=== PATIENT | male | born 1960 | race Caucasian/White ===

== ENCOUNTER 2017-04-03 14:40 | Inpatient (IN) | payer MEDICARE, MEDICAID ==
[~2017-04-03] VITALS: Ht 177.8 cm; Wt 78.6 kg
[2017-04-03] MEDS ORDERED: METO10ELUD PO (15:11)
[2017-04-03] MEDS ORDERED: REME15TA PO (15:11)
[2017-04-03] MEDS ORDERED: FENT1DIS14 TD (15:11)
[2017-04-03] MEDS ORDERED: PROT1TAB2 PO (15:11)
[2017-04-03] MEDS ORDERED: TRAZ50TA11 PO (15:11)
[2017-04-03] MEDS ORDERED: ASPI81TA85 PO (15:11)
[2017-04-03] MEDS ORDERED: CELE40TA PO (15:11)
[2017-04-03] MEDS ORDERED: MOM 30ML SUSPENSION UDC PO PRN (17:15)
[2017-04-03] MEDS ORDERED: MAALOX 30 ML SUSP *UDC PO PRN (17:15)
[2017-04-03] MEDS ORDERED: traZODone 50 MG TAB PO PRN (17:15)
[2017-04-03] MEDS ORDERED: ACETAMINOPHEN TAB 650MG DOSE (2X325MG) PO PRN (17:15)
[2017-04-03] MEDS ORDERED: METHY10TA PO (17:28)
[2017-04-03] MEDS ORDERED: DULO1CAP2 PO (17:28)
[2017-04-03] MEDS ORDERED: NIFE60TA6 PO (17:28)
[2017-04-03] MEDS ORDERED: DULO1CAP3 PO (17:28)
[2017-04-03 17:54] VITALS: BP 140/73
[2017-04-03] MEDS: MIRTAZAPINE 7.5MG PER 1/2 TABLET PO SCH (22:56)
[2017-04-04 06:54] VITALS: BP 150/80
[2017-04-04] MEDS ORDERED: DULoxetine 30 MG CAP (CYMBALTA) PO SCH ×2 (09:00)
[2017-04-04] MEDS ORDERED: METOCLOPRAMIDE HCL LIQUID 10 MG/10 ML UDC PO SCH (09:00)
[2017-04-04] MEDS ORDERED: CitaloPRAM (CeleXA) 20 MG TAB PO SCH (09:00)
[2017-04-04] MEDS: PANTOPRAZOLE 40MG TAB (PROTONIX) PO SCH (09:40)
[2017-04-04] MEDS: DULoxetine 30 MG CAP (CYMBALTA) PO SCH (09:40)
[2017-04-04] MEDS: ASPIRIN 81 MG ENTERIC TAB PO SCH (09:40)
[2017-04-04 18:00] VITALS: BP 135/78
--- NOTE | 2017-04-04 18:35 | MHHPEPDOC ---
[facility] History & Physical History and Physical DATE OF ADMISSION: Apr 03, 2017 at 17:07 LEGAL STATUS AT ADMISSION: 9.27 converted to voluntary status today CHIEF COMPLAINT: They thought I am suicidal. HISTORY OF THE PRESENT ILLNESS: Patient is a 56-year-old male, who , unemployed domiciled alone with past psychiatric history of depression and multiple inpatient hospital admissions, including last one 6 weeks ago in [place], history of 2 previous suicide attempts, one in 1980s with overdose and 6 weeks ago, again overdose while under the influence of alcohol, no legal problems, alcohol use. Past medical history of hypertension, [place], status post surgery for colon cancer in 2005 and knee surgery for cartilage problems, transferred from ER of [place] because patient reported suicidal ideations. On evaluation, patient reported that he is on fentanyl because of the back pain and one of his nieces was after him to get fentanyl patches from him. He initially ignored her, but she escalated and keep calling him, asking for fentanyl patches. Patient thinks that niece is addicted and did not want to give her any fentanyl, but she started following him, so he called 911. Patient reported that when police arrived, he told the story and police was not able to do much, so he asked how he can be removed from the situation, so he does not need to deal with the niece anymore. He reports that that's how the idea about suicide came into picture and he denies being suicidal. Patient does accept that around Easter time he broke up with his boyfriend of 5 years and felt very depressed and had to be in the inpatient unit for about 5 days for taking extra pills while being on the influence of alcohol. Patient thinks that he has improved since that and he does not feel depressed to the level of colon himself and denies any recent suicidal thoughts, intentions or plans. He reports that he talked about suicide just to get out of the situation this time. Patient's symptoms with minimizing and not fully opening up about his illness as well as the severity of the issues that he is going through. He reported that patient was talking about taking overdose in the [facility] , which led to transfer of the patient to this hospital ER He reports that he lives alone and gets Medicaid tow truck driver to take him to the appointments and also gets help from his sister at times to do grocery and other things, but reports that he does not have any other support to help him and thinks that all his relationships and family members are estranged. Patient reported that he has been following with his counselor and psychiatrist, Dr. Caroline Leonard lately and has been taking his medications Cymbalta 90 mg a day and Ritalin 10 mg twice a day regularly and also been following up regularly. Patient reports that he wants to live for himself and also wants to help new relationship since his boyfriend left him. He denies ever been having some manic symptoms. He also denies any psychotic symptoms including paranoid ideations and hallucinations. He denies any OCD or PTSD symptoms. He reports having some nervousness and anxiety but denies any panic attacks. PAST PSYCHIATRIC HISTORY: Prior Psychiatric Disorder: Depression. Patient reported that he has been admitted multiple times in the 1980s because of the depression and suicidal ideations and one attempt with overdose, but reports that recently he has been more stable except one admission 6 weeks ago for similar suicide attempt. Outpatient Treatment:. Patient reports being in therapy and medication management with Dr. Velazquez. Suicidal/Self injurious: 2 suicide attempts, as noted in HPI. Psychotropic Medication History:. Patient reports he has been on Cymbalta, Abilify. ALLERGIES: Please see below. FAMILY PSYCHIATRIC HISTORY: Patient denies any family history of psychiatric illnesses. SOCIAL HISTORY: 56-year-old male, domiciled unemployed, limited social support and estranged relationships with family and friends SUBSTANCE ABUSE HISTORY:. I'll call use. He reports drinking one to 2 beers daily. Denies any blackouts, withdrawal symptoms. PAST MEDICAL/SURGICAL HISTORY: 1., Hypertension, myocardial infarction, status post surgery for colon cancer, status post knee surgery for cartilage problems. MENTAL STATUS EXAMINATION: 56yo male sitting in the chair, looks appropriate for the stated age, fine to coarse tremor present B/L (familial?)fair hygiene and grooming, normal psychomotor activities, cooperative with fair eye contact, speech is normal in rate, rhythm, amount and prosody, mood is 'freaking out', affect constricted and mood congruent, thought process is logical and goal directed, denies current suicidal and homicidal ideations, denies hallucinations, no delusions elicited, aaox3, fair immediate, short term and intermediate memory, fair insight, judgement and impulse control DIAGNOSES: 1. Depressive disorder, unspecified, rule out major depression, recurrent, moderate to severe, without psychosis. 2.. Anxiety disorder, unspecified. ASSESSMENT: Biologically, having chronic medical illnesses can be perpetuating factor for patient but having no psychiatric illness in the family can be protective. Psychologically, having poor. Defense mechanisms and coping skills can be perpetuating factor. Socially, living alone and being estranged from other family members and be perpetuating factor PROBLEM LIST: 1. Depression, suicidal ideations. 2., Alcohol use. INITIAL TREATMENT PLAN: 1. Patient was admitted on a 9., changed to voluntary 2. Complete history was obtained. 3. With patients permission, family will be contacted and database will be expanded. 4. Patients medication regimen will be reviewed and changed accordingly. 5. Patient will be provided with protected environment. 6. Patient will be treated with individual, group, and milieu therapies. 7. Patient will receive supportive psych-education. 8. Discharge planning will commence immediately. 9. Outpatient follow-up treatment will be strongly recommended. 10. The initial treatment plan will focus initially on: * Depression. * Risk for suicide. * Substance abuse. ESTIMATED LENGTH OF STAY: 3-5 DAYS. TIME SPENT COUNSELING AND COORDINATING INITIAL CARE: 45 minutes. Medications Scheduled Aspirin (Aspir-81) 81 Mg Tab, 81 MG PO DAILY, (Reported) Duloxetine Hcl (Duloxetine HCl) 60 Mg Cap, 60 MG PO DAILY, (Reported) 90MG TOTAL DAILY Duloxetine Hcl (Duloxetine HCl) 30 Mg Cap, 30 MG PO DAILY, (Reported) 90MG TOTAL DAILY Fentanyl (Fentanyl) 25 Mcg/Hr Dis, 25 MCG TD Q3RD, (Reported) REMOVED ON TUESDAY AND HAS NOT PUT A NEW ONE ON Methylphenidate HCl (Methylphenidate HCl) 10 Mg Tab, 20 MG PO DAILY, (Reported) Mirtazapine (Remeron) 15 Mg Tab, 7.5 MG PO QHS, (Reported) Nifedipine (Nifedipine ER) 60 Mg Tab, 60 MG PO DAILY, (Reported) Scheduled PRN Trazodone HCl (Trazodone HCl) 50 Mg Tab, 50 MG PO DAILY PRN for SLEEP, (Reported ) Allergies Coded Allergies: Bupropion (Verified Allergy, Unknown, 04/03/17) Ibuprofen (Verified Allergy, Unknown, 04/03/17) MIS HUI MD Apr 04, 2017 18:35
[2017-04-04] MEDS: MIRTAZAPINE 7.5MG PER 1/2 TABLET PO SCH (21:48)
[2017-04-05] MEDS ORDERED: cloNIDine 0.1 MG TAB PO ONE (06:00)
[2017-04-05 06:15] VITALS: BP 200/100
[2017-04-05] MEDS: PANTOPRAZOLE 40MG TAB (PROTONIX) PO SCH (08:52)
[2017-04-05] MEDS: ASPIRIN 81 MG ENTERIC TAB PO SCH (08:53)
[2017-04-05] MEDS: DULoxetine 30 MG CAP (CYMBALTA) PO SCH (08:53)
[2017-04-05 08:57] VITALS: BP 170/90
[2017-04-05] MEDS: NIFEdipine 60 MG XL TAB PO SCH (12:03)
[2017-04-05] MEDS: METOPROLOL TARTRATE 100 MG TAB PO SCH ×2 (12:04→21:55)
--- NOTE | 2017-04-05 15:39 | MHIPNPDOC ---
[facility] Progress Note Progress Note DATE OF SERVICE: 04/05/17 HISTORY: ID: Patient is a 56-year-old male, who , unemployed domiciled alone with past psychiatric history of depression and multiple inpatient hospital admissions, including last one 6 weeks ago in [place], history of 2 previous suicide attempts, one in with overdose and 6 weeks ago, again overdose while under the influence of alcohol, no legal problems, alcohol use. Past medical history of hypertension, [place], status post surgery for colon cancer in 2005 and knee surgery for cartilage problems, transferred from ER of [place] because patient reported suicidal ideations. Patient was seen and evaluated. He reported that he was sleeping most of the day yesterday and very few food items for lunchtime but was able to have good dinner. He also reported that he has been known to have high blood pressure problem and has been taking metoprolol 100 mg twice a day and nifedipine 60 mg daily. His blood pressure was high this morning but denied any symptoms of chest pain, headaches, nausea or vomiting and responded to clonidine. Patient requested for discharge and agreed to do was permission to talk with counselor and or psychiatrist to get collateral information, but reports that all his family members have estranged relationship with him is willing to explore options of having day treatment facility, but current therapist since they have already started thinking in that direction. Patient continued to deny any suicidal or homicidal ideations, intentions or plans. He also denies any sleep or appetite problems, but remains to himself with limited interaction with others in the unit and limited participation in the group therapy or milieu treatment. Denies any psychotic symptoms including hallucinations or paranoid ideations. Patient also seems to be minimizing his call use and not willing to go for any substance use treatment after discharge. He went after repeatedly explaining the effect of alcohol and drugs on mood. He stated "you can refer me , but I'm not going". Will continue to engage patient in discussion about the substance use and encouraged him to follow up outpatient for substance use treatment. He reported compliant with medications and denies any side effects with the current medications. VITAL SIGNS: See below. CURRENT MEDICATIONS: See below. MENTAL STATUS EXAMINATION: 56yo male sitting in the chair, looks appropriate for the stated age, fine to coarse tremor present B/L hands(familial?), fair hygiene and grooming, normal psychomotor activities, cooperative with fair eye contact, speech is normal in rate, rhythm, amount and prosody, mood is 'bored', affect constricted and mood congruent, thought process is logical and goal directed, denies current suicidal and homicidal ideations, denies hallucinations, no delusions elicited, aaox3, fair immediate, short term and oil heaterman memory, fair insight, judgement and impulse control DIAGNOSES: 1. Major depression, recurrent, moderate to severe, without psychosis. 2.. Alcohol use. ASSESSMENT: Patient continued to deny any suicidal or homicidal ideations, but remains to self and isolating. He also refusing to go for outpatient substance use treatment MANAGEMENT PLAN: Continue current treatment. Collateral information from counselor and psychiatrist. Discharge planning in progress. TIME SPENT: 15 minutes. Vital Signs Vital Signs Date Time Temp Pulse Resp B/P (MAP) Pulse Ox O2 Delivery O2 Flow Rate FiO2 04/05/17 12:04 152/82 04/05/17 06:15 99.1 84 18 Room Air 04/03/17 17:37 98 Current Medications Current Medications Acetaminophen (Tylenol Tab) 650 mg Q6HP PRN PO HEADACHE or DISCOMFORT; Start at 17:15; Stop 05/03/17 at 17:14 Al Hydrox/Mg Hydrox/Simethicone (Mylanta) 30 ml Q4HP PRN PO HEARTBURN/ INDIGESTION; Start 04/03/17 at 17:15; Stop 05/03/17 at 17:14 Aspirin (Ecotrin) 81 mg DAILY PO Last administered on 04/05/17 08:53; Start 04/04/17 at 09:00; Stop 05/04/17 at 08:59 Citalopram Hydrobromide (CeleXA) 40 mg DAILY PO ; Start 04/04/17 at 09:00; Stop 04/04/17 at 09:00; Status DC Duloxetine HCl (Cymbalta) 30 mg DAILY PO ; Start 04/04/17 at 09:00; Stop 04/04/17 at 09:26; Status DC Duloxetine HCl (Cymbalta) 60 mg DAILY PO ; Start 04/04/17 at 09:00; Stop 04/04/17 at 09:26; Status DC Duloxetine HCl (Cymbalta) 90 mg DAILY PO Last administered on 04/05/17 08:53; Start 04/04/17 at 09:00; Stop 05/04/17 at 08:59 Home Med (Med Rec Complete!) ASDIRECTED XX ; Start 04/03/17 at 17:30; Stop at 17:32; Status DC Magnesium Hydroxide (Milk Of Magnesia) 30 ml DAILYPRN PRN PO CONSTIPATION; Start 04/03/17 at 17:15; Stop 05/03/17 at 17:14 Metoclopramide HCl (Reglan Liquid) 10 mg DAILY PO ; Start 04/04/17 at 09:00; Stop 04/04/17 at 09:00; Status DC Metoprolol Tartrate (Lopressor) 50 mg BID PO ; Start 04/05/17 at 21:00; Stop 04/05 at 21:00; Status DC Metoprolol Tartrate (Lopressor) 100 mg BID PO Last administered on 04/05/17 12: 04; Start 04/05/17 at 09:00; Stop 05/05/17 at 08:59 Mirtazapine (Remeron) 7.5 mg QHS PO Last administered on 04/04/17 21:48; Start 04/03/17 at 21:00; Stop 05/03/17 at 20:59 Nifedipine (Procardia Xl) 60 mg DAILY PO Last administered on 04/05/17 12:03; Start 04/05/17 at 09:00; Stop 05/05/17 at 08:59 Pantoprazole Sodium (Protonix) 40 mg DAILY PO Last administered on 04/05/17 08: 52; Start 04/04/17 at 09:00; Stop 05/04/17 at 08:59 Trazodone HCl (Desyrel) 50 mg QHSP PRN PO INSOMNIA; Start 04/03/17 at 17:15; Stop 05/03/17 at 17:14 Allergies Coded Allergies: Bupropion (Verified Allergy, Unknown, 04/03/17) Ibuprofen (Verified Allergy, Unknown, 04/03/17) MIS HUI MD Apr 05, 2017 15:39
[2017-04-05 18:00] VITALS: BP 132/70
[2017-04-05] MEDS ORDERED: METOPROLOL TART 50 MG TAB PO SCH (21:00)
[2017-04-05] MEDS: MIRTAZAPINE 7.5MG PER 1/2 TABLET PO SCH (21:55)
[2017-04-06 06:46] VITALS: BP_SYST 128; BP_SYST 186; BP_DIAS 59; BP_DIAS 88
--- NOTE | 2017-04-06 06:52 | HPE ---
DATE OF ADMISSION: 04/03/2017 HISTORY OF PRESENT ILLNESS: Please refer to psychiatric history and evaluation for further details on this admission. This examination and history is intended for medical issues, which may need treatment, followup or consult on this 56-year-old male who was transferred from [facility] having suicidal ideations. PRIMARY CARE PROVIDER: None. ALLERGIES: BUPROPION, IBUPROFEN. SOCIAL HISTORY: He is . Transferred from [facility]. Ethyl alcohol (EtOH) once in a while he would drink two beers. Smokes one half pack of cigarettes per day. Recreational drug use none. PAST MEDICAL HISTORY: 1. Hypertension. 2. Myocardial infarction (DE) in 2005. 3. "Borderline" diabetic. 4. Depression. 5. Chronic back pain. PAST SURGICAL HISTORY: 1. Bowel resection for colon. 2. Right knee surgery. HOME MEDICATIONS: - aspirin 81 mg by mouth daily - duloxetine 90 mg by mouth daily - fentanyl 25 mcg per hour; change every three days - Reglan 20 mg by mouth daily - Remeron 7.5 mg by mouth at bedtime - nifedipine ER 60 mg by mouth daily - tizanidine 30 mg by mouth daily prn REVIEW OF SYSTEMS: 10-system review was done. Other than chronic back pain, was unremarkable. PHYSICAL EXAMINATION: A 56-year-old cooperative male in no acute distress. Height 70 inches, weight 78.4 kg. Body mass index (BMI) 24.9 (Please clarify). VITAL SIGNS: Blood pressure 132/70, pulse 80, respirations 16, temperature 98.6. GENERAL: The patient is alert and oriented times three. HEENT: Pupils equal and react to light. Extraocular movement intact. Sclerae clear. Conjunctivae normal. No facial asymmetry. Pharynx, tongue, gums pink and moist. Tongue is midline. NECK: Supple without lymphadenopathy. No thyromegaly. No goiter. Carotids 2+ without bruits. CHEST: Clear to auscultation without wheeze or retraction. HEART: Regular. ABDOMEN: Benign. Bowel sounds are positive. GENITOURINARY/RECTAL: Not done. EXTREMITIES: Equal strength, full range of motion. No cyanosis, clubbing or edema. Peripheral pulses equal and palpable bilaterally. IMPRESSION AND PLAN: 1. Hypertension, stable. 2. Chronic back pain. Continues with tizanidine as needed. Psychiatric plan per psychiatry. No acute medical issues. MTDD
[2017-04-06 07:38] VITALS: BP 170/78
[2017-04-06 08:52] VITALS: BP 170/78
[2017-04-06] MEDS: NIFEdipine 60 MG XL TAB PO SCH (08:52)
[2017-04-06] MEDS: ASPIRIN 81 MG ENTERIC TAB PO SCH (08:52)
[2017-04-06] MEDS: METOPROLOL TARTRATE 100 MG TAB PO SCH (08:52)
[2017-04-06] MEDS: PANTOPRAZOLE 40MG TAB (PROTONIX) PO SCH (08:52)
[2017-04-06] MEDS: DULoxetine 30 MG CAP (CYMBALTA) PO SCH (08:52)
[2017-04-06] MEDS ORDERED: TRAZO50TA PO (09:25)
[2017-04-06] MEDS ORDERED: DULO30CA PO (09:25)
[2017-04-06] MEDS ORDERED: MIRT15TA3 PO (09:25)
--- NOTE | 2017-04-06 17:35 | MHDSPDOC ---
[facility] Discharge Summary Discharge Summary DATE OF ADMISSION: Apr 03, 2017 at 17:07 DATE OF DISCHARGE: Apr 06, 2017 at 14:30 DISCHARGE DIAGNOSES: 1. Major depression, recurrent, without psychosis. 2.. Alcohol abuse disorder. REASON FOR ADMISSION:, Depression and suicidal ideations From H&P: "CHIEF COMPLAINT: They thought I am suicidal. HISTORY OF THE PRESENT ILLNESS: Patient is a 56-year-old male, who , unemployed domiciled alone with past psychiatric history of depression and multiple inpatient hospital admissions, including last one 6 weeks ago in [place], history of 2 previous suicide attempts, one in with overdose and 6 weeks ago, again overdose while under the influence of alcohol, no legal problems, alcohol use. Past medical history of hypertension, [place], status post surgery for colon cancer in 2005 and knee surgery for cartilage problems, transferred from ER of [place] because patient reported suicidal ideations. On evaluation, patient reported that he is on fentanyl because of the back pain and one of his nieces was after him to get fentanyl patches from him. He initially ignored her, but she escalated and keep calling him, asking for fentanyl patches. Patient thinks that niece is addicted and did not want to give her any fentanyl, but she started following him, so he called 911. Patient reported that when police arrived, he told the story and police was not able to do much, so he asked how he can be removed from the situation, so he does not need to deal with the niece anymore. He reports that that's how the idea about suicide came into picture and he denies being suicidal. Patient does accept that around Easter time he broke up with his boyfriend of 5 years and felt very depressed and had to be in the inpatient unit for about 5 days for taking extra pills while being on the influence of alcohol. Patient thinks that he has improved since that and he does not feel depressed to the level of colon himself and denies any recent suicidal thoughts, intentions or plans. He reports that he talked about suicide just to get out of the situation this time. Patient's symptoms with minimizing and not fully opening up about his illness as well as the severity of the issues that he is going through. He reported that patient was talking about taking overdose in the [facility] , which led to transfer of the patient to this hospital ER He reports that he lives alone and gets Medicaid vibratory pile driver to take him to the appointments and also gets help from his sister at times to do grocery and other things, but reports that he does not have any other support to help him and thinks that all his relationships and family members are estranged. Patient reported that he has been following with his counselor and psychiatrist, Dr. Caroline Leonard lately and has been taking his medications Cymbalta 90 mg a day and Ritalin 10 mg twice a day regularly and also been following up regularly. Patient reports that he wants to live for himself and also wants to help new relationship since his boyfriend left him. He denies ever been having some manic symptoms. He also denies any psychotic symptoms including paranoid ideations and hallucinations. He denies any OCD or PTSD symptoms. He reports having some nervousness and anxiety but denies any panic attacks. PAST PSYCHIATRIC HISTORY: Prior Psychiatric Disorder: Depression. Patient reported that he has been admitted multiple times in the because of the depression and suicidal ideations and one attempt with overdose, but reports that recently he has been more stable except one admission 6 weeks ago for similar suicide attempt. Outpatient Treatment:. Patient reports being in therapy and medication management with Dr. Velazquez. Suicidal/Self injurious: 2 suicide attempts, as noted in HPI. Psychotropic Medication History:. Patient reports he has been on Cymbalta, Abilify. ALLERGIES: Please see below. FAMILY PSYCHIATRIC HISTORY: Patient denies any family history of psychiatric illnesses. SOCIAL HISTORY: 56-year-old male, domiciled unemployed, limited social support and estranged relationships with family and friends SUBSTANCE ABUSE HISTORY:. I'll call use. He reports drinking one to 2 beers daily. Denies any blackouts, withdrawal symptoms. PAST MEDICAL/SURGICAL HISTORY: 1., Hypertension, myocardial infarction, status post surgery for colon cancer, status post knee surgery for cartilage problems." CONSULTANTS INVOLVED: Medical evaluation and treatment TREATMENT AND PROGRESS ON THE UNIT : The patient was admitted on & was converted to voluntary soon and was started on Cymbalta & trazodone, initially patient refused to open up about the reasons & events surrounding the admission but later on discussed about the situation and also allowed collateral info from the primary psych team of outpatient. Patient responded well to the treatment and his mood was stabilized. Patient was initially started on CIWA protocol, but his vital signs were stable and did not need to continue it. HOSPITAL COURSE: Initially after the admission, patient was sad & irritable. He remained to himself with limited interaction with others in the unit. He responded well to the treatment and his mood stabilized more. Denied any suicidal or homicidal ideations and also denied any craving for drugs and refused to go for outpatient treatment for substance use , even after explaining the need for it multiple times. Patient did not need any restraints, constant observations or IM medications while being in the hospital DISCHARGE ASSESSMENT:. Patient reported that his mood has been more stable, he also denied any suicidal or homicidal ideations, intentions or plans. He denied any psychotic symptoms including paranoid ideations or hallucinations. MENTAL STATUS EXAMINATION ON DISCHARGE: 56yo male sitting in the chair, looks appropriate for the stated age, fair hygiene and grooming, normal psychomotor activities, no abnormal movements, cooperative with fair eye contact, speech is normal in rate, rhythm, amount and prosody, mood is 'sad', affect full and mood congruent, thought process is logical and goal directed, denies suicidal and homicidal ideations, denies hallucinations, no delusions elicited, aaox3, fair immediate, short term and long-term memory, fair insight, judgement and impulse control. MEDICATIONS ON DISCHARGE: -Cymbalta 90 mg daily for depression and anxiety. -, Trazodone 50 mg daily at bedtime when necessary for insomnia. PLAN/FOLLOWUP ARRANGEMENTS: As arranged and noted in discharge planners' notes. The amount of time spent in the coordination of care for this patient was approximately 30 minutes. Vital Signs/I&Os Vital Signs Date Time Temp Pulse Resp B/P (MAP) Pulse Ox O2 Delivery O2 Flow Rate FiO2 04/06/17 08:52 70 170/78 04/06/17 06:46 98.9 16 Room Air 04/03/17 17:37 98 Medications Scheduled Aspirin (Aspir-81) 81 Mg Tab, 81 MG PO DAILY, (Reported) Duloxetine Hcl (Cymbalta) 30 Mg Cap, 90 MG PO DAILY for DEPRESSION for 7 Days, # 21 Fentanyl (Fentanyl) 25 Mcg/Hr Dis, 25 MCG TD Q3RD, (Reported) REMOVED ON TUESDAY AND HAS NOT PUT A NEW ONE ON Methylphenidate HCl (Methylphenidate HCl) 10 Mg Tab, 20 MG PO DAILY, (Reported) Mirtazapine (Mirtazapine) 15 Mg Tab, 7.5 MG PO QHS for DEPRESSION for 7 Days, #4 Nifedipine (Nifedipine ER) 60 Mg Tab, 60 MG PO DAILY, (Reported) Scheduled PRN Trazodone HCl (Trazodone HCl) 50 Mg Tab, 50 MG PO QHSP PRN for INSOMNIA for 7 Days, #7 Allergies Coded Allergies: Bupropion (Verified Allergy, Unknown, 04/03/17) Ibuprofen (Verified Allergy, Unknown, 04/03/17) MIS HUI MD Apr 06, 2017 17:35
== END 2017-04-06 14:30 | disposition home or self-care (01) | DRG 885 ==
LOC: M ED 14:40 → M ED INP 17:07 → M PSY 17:52
PROVIDERS: ADMIT Psychiatry & Neurology Psychiatry; ATTEND Psychiatry & Neurology Psychiatry
DX: F33.9 Major depressive disorder, recurrent, unspecified (principal); F41.9 Anxiety disorder, unspecified; F17.210 Nicotine dependence, cigarettes, uncomplicated; I10 Essential (primary) hypertension; F10.10 Alcohol abuse, uncomplicated; I25.2 Old myocardial infarction; R73.03 Prediabetes; M54.9 Dorsalgia, unspecified; Z90.49 Acquired absence of other specified parts of digestive tract; Z85.038 Personal history of other malignant neoplasm of large intestine; Z88.6 Allergy status to analgesic agent; Z91.5 Personal history of self-harm; Z79.82 Long term (current) use of aspirin; Z88.8 Allergy status to other drugs, medicaments and biological substances; Z79.899 Other long term (current) drug therapy